=== PATIENT | female | born 1985 | race Caucasian/White ===

== ENCOUNTER 2017-08-03 10:30 | Inpatient (IN) | payer OTHER ==
[~2017-08-03] VITALS: Ht 162.6 cm; Wt 95.7 kg
[2017-08-03] MEDS ORDERED: LR 1,000 ML IV ONE (10:53)
[2017-08-03] MEDS ORDERED: OXYTOCIN/NORMAL SALINE 1,000 ML IV SCH ×2 (10:53→21:26)
[2017-08-03] MEDS ORDERED: LR 1,000 ML IV SCH (10:53)
[2017-08-03] MEDS ORDERED: TERBUTALINE SULFATE 1 MG/ML VIAL SUBCUT ONE (11:00)
[2017-08-03] MEDS ORDERED: NALBUPHINE HCL 10 MG/ML AMP IVP PRN (11:00)
[2017-08-03 11:30] LABS: BASOPHILS % (AUTO) 0.3 % (0.0-2.0); EOSINOPHILS # (AUTO) 0.1 K/uL (0.0-0.4); EOSINOPHILS % (AUTO) 0.4 % (0.0-4.0); HEMATOCRIT 34.3 % (36-48); HEMOGLOBIN 11.1 g/dL (12.0-16.0); LYMPHOCYTES # (AUTO) 1.6 K/uL (1.0-5.5); LYMPHOCYTES % (AUTO) 10.6 % (20.5-51.5); MEAN CORPUSCULAR HEMOGLOBIN 27 pg (27-31); MEAN CORPUSCULAR HGB CONC 33 % (32-36); MEAN CORPUSCULAR VOLUME 84 fL (79.0-98.0); MONOCYTES # (AUTO) 0.8 K/uL (0.0-1.0); MONOCYTES % (AUTO) 5.4 % (1.7-9.3); NEUTROPHILS # (AUTO) 12.7 K/uL (1.8-7.7); NEUTROPHILS % (AUTO) 83.3 % (40.0-70.0); PLATELET COUNT (AUTO) 443 K/uL (130-430); RED BLOOD CELL COUNT(AUTO) 4.08 MIL/uL (4.2-6.2); RED CELL DISTRIBUTION WIDTH 13.3 % (9.0-15.0); WHITE BLOOD COUNT (AUTO) 15.2 K/uL (4.8-10.8)
[2017-08-03] MEDS ORDERED: ROPIVACAINE 0.2% 100 ML ONE ×2 (11:40→19:19)
[2017-08-03] MEDS ORDERED: fentaNYL CITRATE/PF 100 MCG/2 ML AMP ONE (11:40)
[2017-08-03] MEDS ORDERED: LR 500 ML IV ONE (11:41)
[2017-08-03] MEDS ORDERED: FENT2mCg/mL-ROPIVA0.2%/NS EPID 150 ML EP SCH (11:45)
[2017-08-03 14:08] VITALS: BP_SYST 130
[2017-08-03] MEDS ORDERED: TEMAZEPAM 15 MG CAPSULE PO PRN (21:00)
[2017-08-03] MEDS ORDERED: OXYTOCIN/NORMAL SALINE 1,000 ML IV ONE (21:26)
[2017-08-03] MEDS ORDERED: HYDROCORTISONE 0.5%, 28.35 GM TOPICAL CREAM TP PRN (21:30)
[2017-08-03] MEDS ORDERED: GLYCERIN/WITCH HAZEL (TUCKS PADS) TP PRN (21:30)
[2017-08-03] MEDS ORDERED: DOCUSATE SODIUM 100 MG CAPSULE PO PRN (21:30)
[2017-08-03] MEDS ORDERED: ANUSOL 1 EA SUPP.RECT (PREPARATION H) RC PRN (21:30)
[2017-08-03] MEDS ORDERED: LANOLIN 7 GM OINT. TP PRN (21:30)
[2017-08-03] MEDS ORDERED: RHO(D) IMMUNE GLOBULIN/MALTOSE 1500 UNITS/1.3 ML (WINHRO) IM PRN (21:30)
[2017-08-03] MEDS ORDERED: HYDROcodone/ACETAMIN 5-325 MG TAB (NORCO/ VICODIN) PO PRN (21:30)
[2017-08-03] MEDS ORDERED: OXYCODONE/ACETAMINOPHEN 5-325 TABLET PO PRN ×2 (21:30)
[2017-08-03] MEDS ORDERED: DIPH-TET-PERTUS Vaccine 0.5 ML VIAL (ADACEL) I.M. PRN (21:30)
[2017-08-03] MEDS ORDERED: SENNOSIDES/DOCUSATE SODIUM 1 TAB TABLET(SENOKOT-S) PO PRN (21:30)
[2017-08-03] MEDS ORDERED: MEASLES,MUMPS&RUBELLA VACC/PF 12500 UNIT/0.5 ML VIAL SUBQ PRN (21:30)
[2017-08-03] MEDS ORDERED: METHYLERGONOVINE MALEATE 0.2 MG TABLET PO PRN (21:30)
[2017-08-03] MEDS ORDERED: DERMOPLAST SPRAY TP PRN (21:30)
[2017-08-04] MEDS: IBUPROFEN 600 MG TABLET PO SCH ×4 (00:25→17:40)
[2017-08-04 06:49] LABS: BASOPHILS % (AUTO) 0.2 % (0.0-2.0); EOSINOPHILS % (AUTO) 0.1 % (0.0-4.0); HEMATOCRIT 26.9 % (36-48); HEMOGLOBIN 8.8 g/dL (12.0-16.0); LYMPHOCYTES % (AUTO) 8.4 % (20.5-51.5); MEAN CORPUSCULAR HEMOGLOBIN 27 pg (27-31); MEAN CORPUSCULAR HGB CONC 33 % (32-36); MEAN CORPUSCULAR VOLUME 83 fL (79.0-98.0); MONOCYTES # (AUTO) 1.3 K/uL (0.0-1.0); MONOCYTES % (AUTO) 5.6 % (1.7-9.3); PLATELET COUNT (AUTO) 354 K/uL (130-430); RED BLOOD CELL COUNT(AUTO) 3.23 MIL/uL (4.2-6.2); RED CELL DISTRIBUTION WIDTH 13.2 % (9.0-15.0); WHITE BLOOD COUNT (AUTO) 23.3 K/uL (4.8-10.8)
[2017-08-04 11:01] LABS: NEUTROPHILS % (AUTO) 85.7 % (40.0-70.0)
[2017-08-04] MEDS ORDERED: ROPIVACAINE 40 MG/20 ML AMP EP ONE ×2 (13:17→13:22)
[2017-08-04] MEDS ORDERED: NS 100 ML BAG IV ONE ×2 (13:17→13:22)
[2017-08-04] MEDS ORDERED: BUPIVACAINE /PF 0.5% 30 ML VIAL INJ ONE (13:19)
[2017-08-05] MEDS: IBUPROFEN 600 MG TABLET PO SCH ×3 (05:39→12:03)
== END 2017-08-05 13:35 | disposition home or self-care (01) | DRG 775 ==
LOC: SPU 10:30 → UNDOADMOB 10:41 → INTOOBSV 10:41 → SPU 10:41 → OBSVTOIN 10:41
PROVIDERS: ADMIT Specialist; ATTEND Specialist
PROC: 10E0XZZ Delivery of Products of Conception, External Approach (ICD-10-PCS; principal; 2017-08-03)
PROC: 0W8NXZZ Division of Female Perineum, External Approach (ICD-10-PCS; 2017-08-03)
PROC: 3E0R3BZ Introduction of Anesthetic Agent into Spinal Canal, Percutaneous Approach (ICD-10-PCS; 2017-08-03)
PROC: 00HU33Z Insertion of Infusion Device into Spinal Canal, Percutaneous Approach (ICD-10-PCS; 2017-08-03)
DX: O80 Encounter for full-term uncomplicated delivery (principal); Z37.0 Single live birth; Z3A.38 38 weeks gestation of pregnancy
CPT/HCPCS: 36415; 81002-TC; 85025; 86592; 86886; 86900; 86901; G0378; J2590; J2795; J3010; J3490; J7120